=== PATIENT | female | born 1960 | race Two or more races ===

== ENCOUNTER → 2024-11-30 | Day surgery (SDC) | payer MEDICARE ==
[2024-11-26 10:06] LABS: Alanine Aminotransferase 28 U/L (7-40); Albumin 4.7 g/dL (3.2-4.8); Alkaline Phosphatase 94 U/L (46-116); Anion Gap 8 (5-15); BUN/Creatinine Ratio 14.6 (10.0-20.0); Bilirubin, Total 0.5 mg/dL (0.2-1.0); Blood Urea Nitrogen 14 mg/dL (9-23); Carbon Dioxide 28 mmol/L (20-31); Chloride 105 mmol/L (98-107); Potassium 4.5 mmol/L (3.5-5.1); Sodium 141 mmol/L (136-145); Total Protein 7.6 g/dL (5.7-8.2)
[2024-11-26 10:07] LABS: Glucose 112 mg/dL (74-106)
[2024-11-26 10:08] LABS: Calcium 10.5 mg/dL (8.7-10.4)
[2024-11-26 10:12] LABS: Hematocrit 41.8 % (36.0-46.0); Hemoglobin 14.4 g/dL (12.2-16.2); Mean Corpuscular Hemoglobin 32.2 pg (28.0-32.0); Mean Corpuscular Volume 93.6 fL (80.0-100.0); Nucleated Red Blood Cells % 0.1 %
[~2024-11-30] VITALS: Ht 152.4 cm; Wt 77.1 kg
[~2024-11-30] MED LIST: LEVO-848 PO; LISI20TA56 PO; MAGN400T40 PO; SODIUM CHLORIDE LOCK 10 ML ONE
[2024-11-30 12:41] VITALS: PULSE 74; RESP 18; O2SAT 100
[2024-11-30] MEDS: diphenhdrAMINE HCL 50 MG/1 ML VL ONE (12:45)
[2024-11-30] MEDS: fentaNYL CITRATE 100 MCG/2 ML VL ONE (12:45)
[2024-11-30] MEDS: MIDAZOLAM HCL 5 MG/ML-1ML VIAL ONE (12:45)
--- NOTE | 2024-11-30 13:00 | DVHOP2 ---
Operative Report DATE OF OPERATION: 11/30/24 PROCEDURE: Colonoscopy with cold biopsy PREOPERATIVE INDICATION: The patient is a 64 -year-old female undergoing colonoscopy for surveillance with personal history of colon polyps and diverticulitis POSTOPERATIVE DIAGNOSES: 1. Moderate scattered diverticular disease most prominent in the sigmoid with diverticular associated sigmoiditis from which biopsies were obtained 2. Trace to 1+ internal hemorrhoids otherwise completely normal colonoscopy examination up to the cecum and terminal ileum PROCEDURE PERFORMED BY: Reynaldo Valdes M.D. SCOPE: Olympus videocolonoscope. ASA CLASS: 2. PREOPERATIVE MEDICATIONS: Versed 3 mg, Fentanyl 100 mcg, Benadryl 50 mg PROCEDURE IN DETAIL: After obtaining an informed consent, the patient was placed on left lateral decubitus position. She was then sedated with the above medications. A rectal examination was performed that was normal. The colonoscope was then passed through the anus into the rectosigmoid and through the descending, transverse, and ascending colon up to the cecum with visualization of the appendiceal orifice, base of the cecum and the i leocecal valve. The colonoscope was then withdrawn. The distal 5-10 cm of the terminal ileum were normal No polyps or masses were seen. There was moderate scattered diverticular disease most prominent in the sigmoid There were diverticular associated sigmoiditis from which biopsies were obtained. On retroflexion and straight on view she had trace internal hemorrhoids The patient tolerated the procedure well without difficulty. WITHDRAWAL TIME: 6 minutes QUALITY OF THE PREP: [facility] Bowel Prep score: 9. COMPLICATIONS : None SPECIMENS: Sigmoid colon biopsies DISPOSITION: Stable D/C to home PLAN: 1. Repeat colonoscopy in 3-5 years because of history of colon polyps 2. Resume GI soft diet advance as tolerated 3. Increase fluid and fiber intake 4. Local anorectal hemorrhoidal care 5. Outpatient follow up with me in 4-6 weeks to review results and discuss further management REYNALDO VALDES MD Nov 30, 2024 13:00
[2024-11-30 13:01] VITALS: PULSE 72; RESP 13; O2SAT 92
[2024-11-30 13:30] VITALS: BP 126/77; PULSE 73; RESP 18; O2SAT 98
== END | disposition home or self-care (01) ==
LOC: GI 10:40
PROVIDERS: ATTEND Internal Medicine Gastroenterology
DX: R10.9 Unspecified abdominal pain (principal); K57.30 Diverticulosis of large intestine without perforation or abscess without bleeding; K64.0 First degree hemorrhoids; K52.9 Noninfective gastroenteritis and colitis, unspecified; I10 Essential (primary) hypertension; M19.90 Unspecified osteoarthritis, unspecified site; Z90.49 Acquired absence of other specified parts of digestive tract; Z98.891 History of uterine scar from previous surgery; Z86.0100 Personal history of colon polyps, unspecified; Z79.899 Other long term (current) drug therapy; Z98.41 Cataract extraction status, right eye; Z98.42 Cataract extraction status, left eye
CPT/HCPCS: 36415; 45380; 80053; 85025; 85730; 88305; J1200; J2250; J3010